=== PATIENT | male | born 1995 | race Caucasian/White ===

== ENCOUNTER 2018-03-29 06:55 | Emergency (ER) | payer SELFPAY ==
[~2018-03-29] VITALS: Ht 177.8 cm; Wt 129.5 kg
[2018-03-29 07:01] VITALS: Ht 177.8 cm; Wt 129.5 kg
[2018-03-29] MEDS ORDERED: PREDNISONE20 MG PO (09:13)
[2018-03-29] MEDS ORDERED: EPIPEN0.3 MG/0.3 IM (09:13)
[2018-03-29 09:18] VITALS: BP 122/57
== END 2018-03-29 09:25 | disposition home or self-care (01) ==
LOC: D.ER 06:55
DX: T78.40XA Allergy, unspecified, initial encounter (principal); X58.XXXA Exposure to other specified factors, initial encounter; R22.9 Localized swelling, mass and lump, unspecified